=== PATIENT | male | born 1935 ===

== ENCOUNTER 2022-08-04 10:50 | Observation (INO) ==
[2022-08-04 11:13] LABS: ABS Basophils 0.3 10^3/uL (0.0-0.1); ABS Eosinophils 0.2 10^3/uL (0.0-0.5); ABS Monocytes 0.4 10^3/uL (0.0-1.1); ABS Neutrophils 4.7 10^3/uL (1.5-7.6); ABS Nucleated RBC 0.01 10^3/ul; Eosinophil % 2.3 %; Hematocrit 36.5 % (38-53); Hemoglobin 12.5 g/dL (13.2-16.3); Lymphocyte % 26.4 %; Mean Corpuscular Hemoglobin 31.8 pg (27-33); Mean Corpuscular Hgb Conc 34.3 g/dL (31-36); Mean Corpuscular Volume 92.8 fL (80-97); Mean Platelet Volume 7.6 fL (7.5-11.2); Nucleated Red Blood Cells % 0.1 /100 WBC (0.0-0.4); Platelet Count 275 10^3/uL (150-450); Red Blood Count 3.93 10^6/uL (4.06-5.63); Red Cell Distribution Width 13.6 % (12-17); White Blood Count 7.7 10^3/uL (3.6-10.2)
[2022-08-04] MEDS ORDERED: NS 0.9% 1000 ml BAG 1,000 ML IV ONE (11:30)
[2022-08-04 11:37] LABS: INR 1.08 (0.88-1.18)
[2022-08-04 11:46] LABS: Albumin 4.4 g/dL (3.2-5.2); Albumin/Globulin Ratio 1.6 (1-3); Calcium 10.1 mg/dL (8.6-10.3); Creatinine, Serum 1.52 mg/dL (0.67-1.17); Globulin 2.8 g/dL (2-4); Total Bilirubin 1.2 mg/dL (0.2-1.0); Total Protein 7.2 g/dL (6.4-8.9); eGFR CKD-EPI 43.8 (>60)
[2022-08-04] MEDS ORDERED: Ondansetron 4 mg VIAL 2 MG/ML 2 ml VIAL IV ONE (12:05)
[2022-08-04] MEDS ORDERED: Famotidine IV 10 MG/ML 2 ml VIAL (20 mg) IV SLOW PU ONE (12:05)
[2022-08-04] MEDS ORDERED: Morphine 4 MG/ML VIAL (1 ml) IV ONE (12:05)
[2022-08-04] MEDS ORDERED: Iodixanol (CONTRAST) 320 MG/ML 100 ML SDV IV ONE (14:48)
[2022-08-04] MEDS ORDERED: Enoxaparin 40 MG/0.4 ML SYR SUBCUT SCH (18:00)
[2022-08-04] MEDS ORDERED: Lactated Ringers 1000 ml BAG 1,000 ML IV SCH (18:00)
[2022-08-04 20:19] LABS: HDL Cholesterol 54.2 mg/dL
[2022-08-05 06:02] LABS: ABS Basophils 0.1 10^3/uL (0.0-0.1); ABS Eosinophils 0.3 10^3/uL (0.0-0.5); ABS Lymphocytes 1.5 10^3/uL (1.0-4.8); ABS Monocytes 0.5 10^3/uL (0.0-1.1); ABS Neutrophils 3.3 10^3/uL (1.5-7.6); Eosinophil % 4.6 %; Hematocrit 32.3 % (38-53); Hemoglobin 11.2 g/dL (13.2-16.3); Lymphocyte % 26.2 %; Mean Corpuscular Hemoglobin 31.7 pg (27-33); Mean Corpuscular Hgb Conc 34.7 g/dL (31-36); Mean Corpuscular Volume 91.2 fL (80-97); Mean Platelet Volume 7.4 fL (7.5-11.2); Nucleated Red Blood Cells % 0.1 /100 WBC (0.0-0.4); Platelet Count 244 10^3/uL (150-450); Red Blood Count 3.54 10^6/uL (4.06-5.63); Red Cell Distribution Width 13.6 % (12-17); White Blood Count 5.6 10^3/uL (3.6-10.2)
[2022-08-05 06:47] LABS: Anion Gap 6 mmol/L (2-16); Blood Urea Nitrogen 23 mg/dL (6-24); CO2 Carbon Dioxide 24 mmol/L (22-32); Calcium 9.2 mg/dL (8.6-10.3); Chloride 111 mmol/L (101-111); Creatinine, Serum 1.14 mg/dL (0.67-1.17); Glucose 91 mg/dL (70-100); Magnesium 2.1 mg/dL (1.9-2.7); Potassium 4.4 mmol/L (3.5-5.0); Sodium 141 mmol/L (135-145); eGFR CKD-EPI 61.9 (>60)
[2022-08-05 12:28] LABS: % Iron Saturation 30 % (15-55); .Transferrin 193 mg/dL (203-362); Iron 81 ug/dL (50-212); Total Iron Binding Capacity 270 mcg/dL (250-450); Unsaturated Iron Binding 189 ug/dL
[2022-08-05 12:50] LABS: Ferritin 138.1 ng/mL (24-336)
[2022-08-05 12:53] LABS: Folate > 20.00 ng/mL (5.90-24.80)
[2022-08-05 12:54] LABS: Vitamin B12 423 pg/mL (180-914)
[2022-08-05 13:09] LABS: Corrected Retic Count 0.7 % (0.5-1.5); Hematocrit for Retic CNT 32.7 % (38-53); Immature Retic Fraction 0.22; RBC Retic Count 3.56 10^6/ul (4.06-5.63)
[2022-08-05 15:45] VITALS: BP 156/52
== END 2022-08-05 15:45 | disposition home or self-care (01) ==
LOC: ED 10:50 → EDHOLD 17:51 → INTOOBSV 17:51 → MEDTELE 21:11
PROVIDERS: ADMIT Internal Medicine; ATTEND Internal Medicine

== ENCOUNTER 2022-12-22 06:12 | Observation (INO) ==
[~2022-12-22 06:12] MED LIST: Buffered Lidocaine 1% SYRIN 1 ml INTRADERM ONE; Lactated Ringers 1000 ml BAG 1,000 ML IV SCH
[2022-12-22] MEDS ORDERED: Lidocaine 2% PF 5 ML VIAL ONE (06:56)
[2022-12-22] MEDS ORDERED: Propofol 10 MG/ML 20 ML BTL ONE (06:56)
[2022-12-22] MEDS ORDERED: fentaNYL 250 mcg/5 ml 50 MCG/ML 5 ml VIAL (250 MCG) ONE (06:59)
[2022-12-22] MEDS ORDERED: Phenylephrine 40 mcg/mL 10mL (400mcg) SYRINGE ONE ×2 (06:59→10:36)
[2022-12-22] MEDS ORDERED: Gentamicin ADULT 500 MG in NS 0.9% 100 ml BAG 100 ML IVPB ONE (07:00)
[2022-12-22] MEDS ORDERED: Ampicillin ADVAN 2 GM in NS 0.9% 100 ML 100 ML IVPB ONE (07:00)
[2022-12-22] MEDS ORDERED: Sterile Water for Inj 10 ML ONE (07:00)
[2022-12-22] MEDS ORDERED: Rocuronium 50 mg VIAL 10 mg/ml 5 ml VIAL (50 mg) ONE (07:01)
[2022-12-22 07:12] LABS: Rapid COVID-19 Molecular Undetected (Undetected)
[2022-12-22] MEDS ORDERED: Ondansetron 4 mg VIAL 2 MG/ML 2 ml VIAL IV PRN (08:00)
[2022-12-22] MEDS ORDERED: Dexamethasone IV 4 MG/ML VIAL 1 ml VIAL ONE ×2 (08:37→10:28)
[2022-12-22] MEDS ORDERED: Ondansetron 4 mg VIAL 2 MG/ML 2 ml VIAL ONE ×2 (08:37→10:28)
[2022-12-22] MEDS ORDERED: Acetaminophen IV 1 GM/100ML 1,000 MG/100 ML BAG IV ONE (08:37)
[2022-12-22] MEDS ORDERED: Furosemide 20 mg/2 ml IV VIAL ONE (08:46)
[2022-12-22] MEDS ORDERED: fentaNYL 100 mcg/2 ml 50 MCG/ML VIAL IV PRN (09:39)
[2022-12-22] MEDS ORDERED: Naloxone 0.4 mg VIAL 0.4 mg/ml 1 ml VIAL IV PRN (09:39)
[2022-12-22] MEDS ORDERED: HYDROmorphone 1 MG/1 ML SYRINGE IV PRN (09:39)
[2022-12-22] MEDS: NS 0.9% 1000 ml BAG 1,000 ML IV SCH ×2 (11:03→19:53)
[2022-12-22] MEDS: Neomycin/Polym/Bacit TOP OINT 15 GM TOPICAL SCH ×4 (11:52→23:30)
[2022-12-22] MEDS: Magnesium Hydroxide LIQ 30 ML UDC PO SCH ×2 (11:52→23:30)
[2022-12-22] MEDS ORDERED: ceFAZolin 1 GM X ONE DOSE (AddVan) IVPB (12:00)
[2022-12-22] MEDS: ceFAZolin 1 GM in Dextrose 1 GM/50 ML BAG IVPB SCH (12:30)
[2022-12-23] MEDS: ceFAZolin 1 GM in Dextrose 1 GM/50 ML BAG IVPB SCH (00:23)
[2022-12-23] MEDS: NS 0.9% 1000 ml BAG 1,000 ML IV SCH (04:13)
[2022-12-23 06:42] VITALS: BP 165/62
[2022-12-23] MEDS: Magnesium Hydroxide LIQ 30 ML UDC PO SCH (07:56)
[2022-12-23] MEDS: Neomycin/Polym/Bacit TOP OINT 15 GM TOPICAL SCH (07:57)
== END 2022-12-23 09:45 | disposition home or self-care (01) ==
LOC: SSU 06:12 → OR 06:12
PROVIDERS: ADMIT Urology; ATTEND Urology